=== PATIENT | female | born 1960 | race Caucasian/White ===

== ENCOUNTER 2020-10-21 16:27 | Emergency (ER) | payer OTHER ==
[~2020-10-21] VITALS: Ht 172.7 cm; Wt 100.0 kg
[~2020-10-21 16:27] MED LIST: DULO20CA50 PO; ESOM20CA30 PO; ESTR0.3T PO
[2020-10-21 16:30] VITALS: BP 131/86
[2020-10-21] MEDS ORDERED: PRED50TA PO (16:51)
[2020-10-21] MEDS ORDERED: PROAIR RESPICL90 MCG IH (16:51)
[2020-10-21] MEDS ORDERED: AZIT250T PO (16:51)
--- NOTE | 2020-10-21 16:51 | PHYS DOC ---
Past History Past Medical History: Depression, Other (TAD HILLMAN APRN) Past Surgical History: Appendectomy, Hysterectomy, Other (TAD HILLMAN APRN) Alcohol Use: Rarely Drug Use: None (TAD HILLMAN APRN) Adult General Chief Complaint Chief Complaint: SHORTNESS OF BREATH [facility] HPI Patient is a female with a history of depression and an autoimmune disease which she did not recall who presents to the ED today complaining of cough for 1 week. Patient states she was diagnosed with COVID-19 on Sunday this week and she would like to be on antibiotics because she does not want to develop pneumonia from COVID-19. Denies any fever. (TAD HILLMAN APRN) Review of Systems Review of Systems Constitutional: Denies fever or chills [] Eyes: Denies change in visual acuity, redness, or eye pain [] HENT: Denies nasal congestion or sore throat [] Respiratory: Reports cough denies shortness of breath Cardiovascular: No additional information not addressed in HPI [] GI: Denies abdominal pain, nausea, vomiting, bloody stools or diarrhea [] : Denies dysuria or hematuria [] Musculoskeletal: Denies back pain or joint pain [] Integument: Denies rash or skin lesions [] Neurologic: Denies headache, focal weakness or sensory changes [] All other systems were reviewed and found to be within normal limits, except as documented in this note. (TAD HILLMAN APRN) Allergies Allergies Allergies Coded Allergies Type Severity Reaction Last Updated Verified No Known Drug Allergies 07/24/16 No (TAD HILLMAN APRN) Physical Exam Physical Exam Constitutional: Well developed, well nourished, no acute distress, non-toxic appearance. [] HENT: Normocephalic, atraumatic, bilateral external ears normal, oropharynx moist, no oral exudates, nose normal. [] Eyes: PERRLA, EOMI, conjunctiva normal, no discharge. [] Neck: Normal range of motion, no tenderness, supple, no stridor. [] Cardiovascular:Heart rate regular rhythm, no murmur [] Lungs & Thorax: Bilateral breath sounds clear to auscultation [] Abdomen: Bowel sounds normal, soft, no tenderness, no masses, no pulsatile masses. [] Skin: Warm, dry, no erythema, no rash. [] Back: No tenderness, no CVA tenderness. [] Extremities: No tenderness, no cyanosis, no clubbing, ROM intact, no edema. [] Neurologic: Alert and oriented X 3, normal motor function, normal sensory function, no focal deficits noted. [] Psychologic: Affect normal, judgement normal, mood normal. [] (TAD HILLMAN APRN) EKG EKG [] (TAD HILLMAN APRN) Radiology/Procedures Radiology/Procedures [] (TAD HILLMAN APRN) Heart Score Risk Factors: Risk Factors: DM, Current or recent (<one month) smoker, HTN, HLP, family history of CAD, obesity. Risk Scores: Risk Factors: DM, Current or recent (<one month) smoker, HTN, HLP, family history of CAD, obesity. (TAD HILLMAN APRN) Course & Med Decision Making Course & Med Decision Making Pertinent Labs and Imaging studies reviewed. (See chart for details) This is a 60-year-old female patient Covid positive presenting today requesting antibiotic stating she has an autoimmune disease and does not want to develop pneumonia. Was given Z-René and prednisone. Discharged home. Her O2 sats have been around 97% on room air. She is in no distress. Was provided return precautions and discharged stable condition. (TAD HILLMAN APRN) Dragon Disclaimer Dragon Disclaimer This electronic medical record was generated, in whole or in part, using a voice recognition dictation system. (TAD HILLMAN APRN) Attending Co-Sign I oversaw on the above date of service of this patient and discussed the care with the SURVEY MANAGER. I agree with the findings, plan of care, and disposition as documented. (SOCORRO RAMIREZ DO) Departure Departure: Impression: Primary Impression: COVID-19 virus RNA test result positive at limit of detection Additional Impression: Cough Disposition: 01 DC HOME SELF CARE/HOMELESS Condition: STABLE Referrals: PCP,UNKNOWN (PCP) follow up with your doctor in one week Patient Instructions: Cough, Adult, [id number] Additional Instructions: Please take the prescribed antibiotics as ordered. Follow-up with your doctor in 1 week. Come back to the ED at any point Scripts Prednisone (PREDNISONE) 50 Mg Tablet 1 TAB PO DAILY, #5 TAB Prov: TAD HILLMAN APRN 10/21/20 Albuterol Sulfate (Proair Respiclick) 90 Mcg Aer.pow.[email or web address] 2 PUFF IH PRN Q4-6HRS PRN for shortness of breath, #1 INHALER 0 Refills Prov: TAD HILLMAN APRN 10/21/20 Azithromycin (ZITHROMAX) 250 Mg Tablet 1 PKG PO UD, #1 PKG Prov: TAD HILLMAN APRN 10/21/20 Problem Qualifiers TAD HILLMAN APRN Oct 21, 2020 16:51 SOCORRO RAMIREZ DO Oct 22, 2020 06:29
== END 2020-10-21 17:19 | disposition home or self-care (01) ==
LOC: ER 16:27
DX: U07.1 COVID-19 (principal); R05 Cough; F32.9 Major depressive disorder, single episode, unspecified
CPT/HCPCS: 99283